=== PATIENT | male | born 1980 | race Caucasian/White ===

== ENCOUNTER 2016-08-22 15:00 | Emergency (ER) | payer BC ==
[2016-08-22] MEDS ORDERED: Acetaminophen 500 MG Tab ONE (15:11)
[2016-08-22] MEDS ORDERED: Acetaminophen 500 MG Tab PO ONE (15:15)
[2016-08-22 15:28] VITALS: BP 131/84
--- NOTE | 2016-08-22 15:45 | EDM.PDOC ---
ED HPI GENERAL MEDICAL PROBLEM - General Chief Complaint: General Stated Complaint: HEADACHE/SHAKES Time Seen by Provider: 08/22/16 15:40 Source of Information: Reports: Patient - History of Present Illness Onset: today, sudden Duration: Hour(s): Quality: Reports: Ache Severity: severe Headache Pain Score (Numeric/FACES): 8 - Related Data Allergies Allergy/AdvReac Type Severity Reaction Status Date / Time Dogs Allergy Sneezing Uncoded 08/22/16 15:48 Outdoor Mold Allergy Sneezing Uncoded 08/22/16 15:48 Ragweed Allergy Sneezing Uncoded 08/22/16 15:48 Edilson Allergy Sneezing Uncoded 08/22/16 15:48 Home Meds: Home Meds Aspirin 81 mg PO BEDTIME 06/04/13 [History] Diltiazem [Tiazac] 240 mg PO DAILY 06/04/13 [History] Sertraline [Zoloft] 75 mg PO DAILY 06/04/13 [History] Sucralfate [Carafate] 1 tab PO QID 02/02/15 [History] EPINEPHrine [Epipen 2-Zachery] 1 injection IM ASDIRECTED PRN 07/12/15 [History] LORazepam [Ativan] 1 mg PO TID PRN 07/12/15 [History] atorvaSTATin Calcium [Atorvastatin Calcium] 20 mg PO DAILY 07/12/15 [History] busPIRone HCl [Buspirone HCl] 7.5 mg PO BID 07/12/15 [History] Cholecalciferol (Vitamin D3) [Vitamin D3] 2,000 units PO DAILY 01/07/16 [History ] Dexlansoprazole [Dexilant] 60 mg PO DAILY 01/07/16 [History] Past Medical History HEENT History: Reports: Allergic rhinitis, Sinusitis Cardiovascular History: Reports: Afib Gastrointestinal History: Reports: Gastritis Neurological History: Reports: Other (see below) (carpal tunnel syndrom bilat.) Psychiatric History: Reports: Anxiety, Panic attack - Past Surgical History GI Surgical History: Reports: None Social & Family History - Tobacco Use Smoking Status *Q: Never Smoker Years of Tobacco use: 20 Packs/Tins Daily: 2 Used Tobacco, but Quit: Yes Month Tobacco Last Used: 11/20 Second Hand Smoke Exposure: No - Alcohol Use Days Per Week of Alcohol Use: 1 Number of Drinks Per Day: 3 Total Drinks Per Week: 3 - Recreational Drug Use Recreational Drug Use: No ED ROS GENERAL - Review of Systems Review Of Systems: See Below Constitutional: Reports: fever, chills HEENT: Reports: No symptoms Respiratory: Reports: No Symptoms Cardiovascular: Reports: No symptoms Endocrine: Reports: no symptoms GI/Abdominal: Reports: Nausea : Reports: no symptoms Musculoskeletal: Reports: no symptoms, muscle pain, muscle stiffness, other Skin: Reports: no symptoms Psychiatric: Reports: No symptoms ED EXAM, GENERAL - Physical Exam Exam: See Below General Appearance: alert, mild distress, obese Ears: normal external exam, normal canal Nose: normal inspection, normal mucosa Throat/Mouth: Normal inspection Head: atraumatic, normocephalic Neck: normal inspection, supple, non-tender, full range of motion Respiratory/Chest: no respiratory distress, lungs clear, normal breath sounds Cardiovascular: normal peripheral pulses, regular rate, rhythm GI/Abdominal: soft, non tender Neurological: alert, oriented Psychiatric: normal affect, normal mood Skin Exam: Warm, Dry Course - Vital Signs Last Recorded V/S: Last Vital Signs Temp 40.2 C H 08/22/16 15:16 Pulse 117 H 08/22/16 15:16 Resp 18 08/22/16 15:16 BP 131/84 08/22/16 15:16 Pulse Ox 98 08/22/16 15:16 - Orders/Labs/Meds Orders: Active Orders 24 hr Category Date Time Status INFLUENZA A+B AG SCREEN [RM] Stat Lab 08/22/16 15:15 Ordered Meds: Medications Discontinued Medications Generic Name Dose Route Start Last Admin Trade Name Ulysses PRN Reason Stop Dose Admin Acetaminophen 1,000 mg 08/22/16 15:15 Tylenol Extra Strength PO 08/22/16 15:16 ONETIME ONE Acetaminophen Confirm 08/22/16 15:11 Tylenol Extra Strength Administered 08/22/16 15:12 Dose 1,000 mg .ROUTE .STK-MED ONE Departure - Departure Time of Disposition: 15:48 Disposition: Home, Self-Care 01 Condition: fair Clinical Impression: Influenza Instructions: Influenza, Adult, [id number] Forms: ED Department Discharge Additional Instructions: Follow up with your regular doctor Thursday. Take meds as ordered. keep fever under control with Tylenol Send home with Tamiflu, z-pack, norco - My Orders Last 24 Hours: My Active Orders 08/22/16 15:15 INFLUENZA A+B AG SCREEN [RM] Stat - Assessment/Plan Last 24 Hours: My Active Orders 08/22/16 15:15 INFLUENZA A+B AG SCREEN [RM] Stat
== END 2016-08-22 16:10 | disposition home or self-care (01) ==
LOC: CC.ED 15:00
DX: J11.1 Influenza due to unidentified influenza virus with other respiratory manifestations (principal); I48.91 Unspecified atrial fibrillation; F41.9 Anxiety disorder, unspecified; Z79.82 Long term (current) use of aspirin; Z79.899 Other long term (current) drug therapy; Z91.09 Other allergy status, other than to drugs and biological substances
CPT/HCPCS: 87804; 99283; A9270

== ENCOUNTER 2018-06-21 22:31 | Emergency (ER) | payer BC, OTHER ==
[2018-06-21 22:54] VITALS: BP 140/63
[2018-06-21] MEDS ORDERED: Ketorolac 60 MG/2 ML SDV IM ONE (23:10)
--- NOTE | 2018-06-21 23:15 | EDM.PDOC ---
ED HPI GENERAL MEDICAL PROBLEM - General Chief Complaint: General Stated Complaint: FEVER Time Seen by Provider: 06/21/18 22:45 Source of Information: Reports: Patient History Limitations: Reports: No Limitations - History of Present Illness INITIAL COMMENTS - FREE TEXT/NARRATIVE: Allen is a 37 year old male who presents to the ED with c/o generalized body aches and fever. He reports starting Thursday evening he began hurting all over. Has had fever as high as 100 deg F the past few days. Reports he has had mild cough. Reports that tonight his headache and body aches got worse prompting Ed visit. He denies any known sick exposure. Reports he just feels lousy. Does have some chest congestion. No chest pain, shortness of breath, abdominal pain. C/o back ache, legs ache, and chest ache. Did take Aleve, which provided some relief. Treatments EPIDEMIOLOGY INTERN: Reports: NSAIDS Generalized Pain Score (Numeric/FACES): 7 - Related Data Allergies Allergy/AdvReac Type Severity Reaction Status Date / Time Dogs Allergy Sneezing Uncoded 06/21/18 22:32 Outdoor Mold Allergy Sneezing Uncoded 06/21/18 22:32 Ragweed Allergy Sneezing Uncoded 06/21/18 22:32 Edilson Allergy Sneezing Uncoded 06/21/18 22:32 Home Meds: Home Meds Aspirin 81 mg PO BEDTIME 06/04/13 [History] Diltiazem [Tiazac] 240 mg PO DAILY 06/04/13 [History] Sertraline [Zoloft] 200 mg PO DAILY 06/04/13 [History] Sucralfate [Carafate] 1 tab PO QID 02/02/15 [History] EPINEPHrine [Epipen 2-Zachery] 1 injection IM ASDIRECTED PRN 07/12/15 [History] LORazepam [Ativan] 1 mg PO TID PRN 07/12/15 [History] atorvaSTATin Calcium [Atorvastatin Calcium] 20 mg PO DAILY 07/12/15 [History] busPIRone HCl [Buspirone HCl] 7.5 mg PO BID 07/12/15 [History] Cholecalciferol (Vitamin D3) [Vitamin D3] 2,000 units PO DAILY 01/07/16 [History ] Dexlansoprazole [Dexilant] 60 mg PO DAILY 08/01/16 [History] predniSONE [Prednisone] 40 mg PO DAILY 5 Days #10 tablet 06/21/18 [Rx] Past Medical History HEENT History: Reports: Allergic Rhinitis, Sinusitis Cardiovascular History: Reports: Afib Gastrointestinal History: Reports: Gastritis Neurological History: Reports: Other (See Below) Psychiatric History: Reports: Anxiety, Panic Attack - Past Surgical History GI Surgical History: Reports: None Oncologic Surgical History: Reports: None Social & Family History - Family History Family Medical History: Noncontributory - Tobacco Use Smoking Status *Q: Never Smoker Second Hand Smoke Exposure: No - Caffeine Use Caffeine Use: Reports: None ED ROS GENERAL - Review of Systems Review Of Systems: ROS reveals no pertinent complaints other than HPI. ED EXAM, GENERAL - Physical Exam Exam: See Below Exam Limited By: No Limitations General Appearance: Alert, WD/WN, No Apparent Distress Eye Exam: Bilateral Eye: EOMI, Normal Fundi, Normal Inspection, PERRL Ears: Normal External Exam, Normal Canal, Hearing Grossly Normal, Normal TMs Nose: Normal Inspection, Normal Mucosa, No Blood Throat/Mouth: Normal Inspection, Normal Lips, Normal Teeth, Normal Gums, Normal Oropharynx, Normal Voice, No Airway Compromise Head: Atraumatic, Normocephalic Neck: Normal Inspection, Supple, Non-Tender, Full Range of Motion Respiratory/Chest: No Respiratory Distress, Lungs Clear, Normal Breath Sounds, No Accessory Muscle Use, Chest Non-Tender Cardiovascular: Normal Peripheral Pulses, Regular Rate, Rhythm, No Edema, No Gallop, No JVD, No Murmur, No Rub GI/Abdominal: Normal Bowel Sounds, Soft, Non-Tender, No Organomegaly, No Distention, No Abnormal Bruit, No Mass Back Exam: Normal Inspection, Full Range of Motion, NT Extremities: Normal Inspection, Normal Range of Motion, Non-Tender, Normal Capillary Refill, No Pedal Edema Neurological: Alert, Oriented, CN II-XII Intact, Normal Cognition, Normal Gait, Normal Reflexes, No Motor/Sensory Deficits Psychiatric: Normal Affect, Normal Mood Skin Exam: Warm, Dry, Intact, Normal Color, No Rash Lymphatic: No Adenopathy Course - Vital Signs Last Recorded V/S: Last Vital Signs Temp 100.7 F H 06/21/18 22:41 Pulse 98 06/21/18 22:41 Resp 18 06/21/18 22:41 BP 140/63 06/21/18 22:41 Pulse Ox 98 06/21/18 22:41 - Orders/Labs/Meds Meds: Medications Discontinued Medications Generic Name Dose Route Start Last Admin Trade Name Ulysses PRN Reason Stop Dose Admin Ketorolac Tromethamine 60 mg 06/21/18 23:10 Toradol IM 06/21/18 23:11 ONETIME ONE - Re-Assessments/Exams Free Text/Narrative Re-Assessment/Exam: 06/21/18 23:09 Discussed lab results with patient. Influenza A positive. Discussed discharge recommendations. Departure - Departure Time of Disposition: 23:11 Disposition: Home, Self-Care 01 Condition: Fair Clinical Impression: Influenza A - Discharge Information *PRESCRIPTION DRUG MONITORING PROGRAM REVIEWED*: Not Applicable *COPY OF PRESCRIPTION DRUG MONITORING REPORT IN PATIENT YOVANI: Not Applicable Prescriptions: predniSONE [Prednisone] 40 mg PO DAILY 5 Days #10 tablet Instructions: Influenza, Adult, [id number] Referrals: Elizabeth Ireland, MAINTENANCE CUSTODIAN [Primary Care Provider] - Forms: ED Department Discharge Additional Instructions: Alternate Tylenol and Aleve/ibuprofen every 3 hours as needed for fever/ discomfort Rest and push fluids. No work for the next couple days. Prednisone 40 mg daily x 5 days. Follow up if symptoms worsen or do not improve
== END 2018-06-21 23:30 | disposition home or self-care (01) ==
LOC: CC.ED 22:31
DX: J10.1 Influenza due to other identified influenza virus with other respiratory manifestations (principal); Z91.09 Other allergy status, other than to drugs and biological substances; Z91.018 Allergy to other foods; Z79.899 Other long term (current) drug therapy
CPT/HCPCS: 87430; 87804; 96372; 99283; J1885

== ENCOUNTER 2018-07-30 09:15 | Emergency (ER) | payer OTHER ==
[2018-07-30 09:54] LABS: CHLORIDE,CL 104 mEq/L (98-106); SODIUM,NA 141 mEq/L (136-145)
--- NOTE | 2018-07-30 10:14 | EDM.PDOC ---
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 Grimes flushing through out his body. States that this isn't his normal anxiety attack. Did have some tingling in feet and hands with it also. Does have history of vertigo and will take meclizine. He doesn't feel like the room spinning dizzy. After being her he felt that he was "warming up" again but still some tingling to hands. No hyperventilation noted. VS have all been stable. NSR on monitor, Denies any chest pain. Did have some nausea that did subside. States that he has not been sleeping well and only had 3-4 hours of sleep last night. 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 Onset: Sudden Associated Symptoms: Denies: Chest Pain - Related Data Allergies Allergy/AdvReac Type Severity Reaction Status Date / Time Dogs Allergy Sneezing Uncoded 07/30/18 09:26 Outdoor Mold Allergy Sneezing Uncoded 07/30/18 09:26 Ragweed Allergy Sneezing Uncoded 07/30/18 09:26 Edilson Allergy Sneezing Uncoded 07/30/18 09:26 Home Meds: Home Meds Aspirin 81 mg PO BEDTIME 06/04/13 [History] Diltiazem [Tiazac] 240 mg PO DAILY 06/04/13 [History] Sertraline [Zoloft] 200 mg PO DAILY 06/04/13 [History] Sucralfate [Carafate] 1 tab PO QID 02/02/15 [History] LORazepam [Ativan] 1 mg PO TID PRN 07/12/15 [History] atorvaSTATin Calcium [Atorvastatin Calcium] 20 mg PO DAILY 07/12/15 [History] Cholecalciferol (Vitamin D3) [Vitamin D3] 5,000 units PO DAILY 01/07/16 [History ] Amitriptyline [Elavil] 25 mg PO DAILY 07/30/18 [History] Fluticasone Propionate [Flonase] 2 spray NS QAM 07/30/18 [History] Meclizine [Antivert] 12.5 mg PO TID 07/30/18 [History] buPROPion [buPROPion XL] 150 mg PO BEDTIME 07/30/18 [History] Past Medical History HEENT History: Reports: Allergic Rhinitis, Sinusitis Cardiovascular History: Reports: Afib Gastrointestinal History: Reports: Gastritis Neurological History: Reports: Other (See Below) Psychiatric History: Reports: Anxiety, Panic Attack - Past Surgical History GI Surgical History: Reports: None Oncologic Surgical History: Reports: None Social & Family History - Family History Family Medical History: Noncontributory - Caffeine Use Caffeine Use: Reports: None - Living Situation & Occupation Living situation: Reports: , with Spouse Occupation: Employed ED ROS GENERAL - Review of Systems Review Of Systems: See Below Constitutional: Reports: Weakness HEENT: Reports: No Symptoms Respiratory: Denies: Shortness of Breath, Cough Cardiovascular: Reports: Lightheadedness. Denies: Chest Pain GI/Abdominal: Reports: Nausea. Denies: Vomiting : Reports: No Symptoms Musculoskeletal: Reports: Other (see HPI) Skin: Reports: No Symptoms Neurological: Reports: Dizziness, Headache, Numbness, Paresthesia, Tingling Psychiatric: Reports: Anxiety ED EXAM, NEURO - Physical Exam Exam: See Below Exam Limited By: No Limitations General Appearance: Alert, WD/WN, No Apparent Distress Eye Exam: Bilateral Eye: PERRL (3 mm equal) Ears: Normal External Exam, Normal Canal, Normal TMs Nose: Normal Inspection Throat/Mouth: Normal Inspection, Normal Oropharynx, Normal Voice, No Airway Compromise Head Exam: Atraumatic, Normocephalic Neck: Normal Inspection, Supple, Non-Tender, Full Range of Motion Respiratory/Chest: No Respiratory Distress, Lungs Clear, Normal Breath Sounds, Chest Non-Tender Cardiovascular: Regular Rate, Rhythm, No Edema GI/Abdominal: Normal Bowel Sounds, Soft, Non-Tender Neurological: Alert, CN II-XII Intact, Normal Gait, Normal Reflexes, No Motor/ Sensory Deficits, Oriented x 3 Back Exam: Normal Inspection, Full Range of Motion Extremities: Normal Inspection, Normal Range of Motion, Non-Tender, No Pedal Edema, Normal Capillary Refill Psychiatric: Normal Affect, Normal Mood Skin Exam: Warm, Dry, Intact, Normal Color, No Rash Course - Vital Signs Last Recorded V/S: Last Vital Signs Temp 98.8 F 07/30/18 10:14 Pulse 72 07/30/18 10:14 Resp 20 07/30/18 10:14 BP 138/67 07/30/18 10:14 Pulse Ox 98 07/30/18 10:14 - Orders/Labs/Meds Labs: Laboratory Tests 07/30/18 07/30/18 07/30/18 Range/Units 09:23 09:24 09:35 WBC 8.3 (5.0-10.0) 10^3/uL RBC 4.95 (4.50-6.00) 10^6/uL Hgb 14.0 (14.0-18.0) g/dL Hct 42.1 (40.0-54.0) % MCV 85.1 (82.0-94.0) fL MCH 28.3 (27.0-32.0) pg MCHC 33.3 (33.0-38.0) g/dL RDW Coeff of Martha 14.2 (11.0-15.0) % Plt Count 239 (150-400) 10^3/uL Neut % (Auto) 67.3 (35-85) % Lymph % (Auto) 22.4 (10-55) % Mcduffie % (Auto) 7.9 (0-16) % Eos % (Auto) 1.8 (0-5) % Baso % (Auto) 0.6 (0-3) % Neut # (Auto) 5.56 (1.80-7.00) 10^3/uL Lymph # (Auto) 1.85 (1.00-4.80) 10^3/uL Mcduffie # (Auto) 0.65 (0.00-0.80) 10^3/uL Eos # (Auto) 0.15 (0.00-0.45) 10^3/uL Baso # (Auto) 0.05 10^3/uL PT 9.8 (9.7-12.3) SEC INR 0.94 (0.92-1.18) APTT 33.4 H (23.2-32.3) SEC Sodium 141 (136-145) mEq/L Potassium 4.2 (3.5-5.0) mEq/L Chloride 104 (98-106) mEq/L Carbon Dioxide 29 (21-32) mmol/L BUN 24 H (7-18) mg/dL Creatinine 0.9 (0.7-1.3) mg/dL Est Cr Clr Drug Dosing 122.15 mL/min Estimated GFR (MDRD) > 60 (>=60) mL/min Glucose 112 H (75-99) mg/dL Calcium 8.9 (8.4-10.1) mg/dL Lactate Dehydrogenase 208 H (100-190) U/L Creatine Kinase 304 H (35-232) U/L Troponin I < 0.017 (0.00-0.06) ng/mL Urine Color (YELLOW) Urine Appearance (CLEAR) Urine pH (4.5-8.0) Ur Specific [place] (1.003-1.020) Urine Protein (NEGATIVE) mg/dL Urine Glucose (UA) (NEGATIVE) mg/dL Urine Ketones (NEGATIVE) mg/dL Urine Occult Blood (NEGATIVE) Urine Nitrite (NEGATIVE) Urine Bilirubin (NEGATIVE) Urine Urobilinogen (0.2-1.0) EU/dL Ur Leukocyte Esterase (NEGATIVE) Urine RBC (0-5) /HPF Urine WBC (0-5) /HPF Ur Squamous Epith Cells (NOT SEEN) /HPF Urine Bacteria (NOT SEEN) /HPF Urine Mucus (NOT SEEN) /HPF 07/30/18 Range/Units 10:10 WBC (5.0-10.0) 10^3/uL RBC (4.50-6.00) 10^6/uL Hgb (14.0-18.0) g/dL Hct (40.0-54.0) % MCV (82.0-94.0) fL MCH (27.0-32.0) pg MCHC (33.0-38.0) g/dL RDW Coeff of Martha (11.0-15.0) % Plt Count (150-400) 10^3/uL Neut % (Auto) (35-85) % Lymph % (Auto) (10-55) % Mcduffie % (Auto) (0-16) % Eos % (Auto) (0-5) % Baso % (Auto) (0-3) % Neut # (Auto) (1.80-7.00) 10^3/uL Lymph # (Auto) (1.00-4.80) 10^3/uL Mcduffie # (Auto) (0.00-0.80) 10^3/uL Eos # (Auto) (0.00-0.45) 10^3/uL Baso # (Auto) 10^3/uL PT (9.7-12.3) SEC INR (0.92-1.18) APTT (23.2-32.3) SEC Sodium (136-145) mEq/L Potassium (3.5-5.0) mEq/L Chloride (98-106) mEq/L Carbon Dioxide (21-32) mmol/L BUN (7-18) mg/dL Creatinine (0.7-1.3) mg/dL Est Cr Clr Drug Dosing mL/min Estimated GFR (MDRD) (>=60) mL/min Glucose (75-99) mg/dL Calcium (8.4-10.1) mg/dL Lactate Dehydrogenase (100-190) U/L Creatine Kinase (35-232) U/L Troponin I (0.00-0.06) ng/mL Urine Color Yellow (YELLOW) Urine Appearance Clear (CLEAR) Urine pH 6.5 (4.5-8.0) Ur Specific [place] 1.020 (1.003-1.020) Urine Protein Negative (NEGATIVE) mg/dL Urine Glucose (UA) Negative (NEGATIVE) mg/dL Urine Ketones Negative (NEGATIVE) mg/dL Urine Occult Blood Negative (NEGATIVE) Urine Nitrite Negative (NEGATIVE) Urine Bilirubin Negative (NEGATIVE) Urine Urobilinogen 1.0 (0.2-1.0) EU/dL Ur Leukocyte Esterase Negative (NEGATIVE) Urine RBC 0-5 (0-5) /HPF Urine WBC 0-5 (0-5) /HPF Ur Squamous Epith Cells Occasional H (NOT SEEN) /HPF Urine Bacteria Occasional H (NOT SEEN) /HPF Urine Mucus Few H (NOT SEEN) /HPF - Re-Assessments/Exams Free Text/Narrative Re-Assessment/Exam: 07/30/18 10:15 In to discuss lab results as normal. discussed that symptoms can be related to the wellbutrin that he was started on Thursday Discussed with MCKENZIE Dean who prescribed it and she agrees that it may be side effects but would like him to stay on it for his anxiety. Departure - Departure Time of Disposition: 10:33 Disposition: Home, Self-Care 01 Condition: Good Clinical Impression: Medication side effects - Discharge Information *PRESCRIPTION DRUG MONITORING PROGRAM REVIEWED*: Not Applicable *COPY OF PRESCRIPTION DRUG MONITORING REPORT IN PATIENT YOVANI: Not Applicable Referrals: Prem Jay PA-C [Primary Care Provider] - Forms: ED Department Discharge Additional Instructions: Continue on meds as ordered by Maryse Follow up with Maryse as scheduled recheck if any new concerns noted. - Problem List & Annotations (1) Medication side effects SNOMED Code(s): 677770164 Code(s): T88.7XXA - UNSP ADVERSE EFFECT OF DRUG OR MEDICAMENT, INIT ENCNTR Status: Acute Priority: High (2) Anxiety SNOMED Code(s): 94836282 Code(s): F41.9 - ANXIETY DISORDER, UNSPECIFIED Status: Chronic Priority: Medium - Problem List Review Problem List Initiated/Reviewed/Updated: Yes
[2018-07-30 10:15] VITALS: BP 138/67
== END 2018-07-30 10:45 | disposition home or self-care (01) ==
LOC: CC.ED 09:15
DX: R20.2 Paresthesia of skin (principal); T45.0X5A Adverse effect of antiallergic and antiemetic drugs, initial encounter; F41.9 Anxiety disorder, unspecified; I48.91 Unspecified atrial fibrillation; Z79.82 Long term (current) use of aspirin; Z79.899 Other long term (current) drug therapy
CPT/HCPCS: 36415; 80048; 81001; 82550; 83615; 84484; 85025; 85610; 85730; 93005; 99284

== ENCOUNTER 2019-06-29 17:11 | Emergency (ER) | payer OTHER ==
[2019-06-29 17:48] LABS: CHLORIDE,CL 101 mEq/L (98-106); SODIUM,NA 140 mEq/L (136-145)
--- NOTE | 2019-06-29 18:04 | EDM.PDOC ---
ED HPI GENERAL MEDICAL PROBLEM - General Chief Complaint: Chest Pain Stated Complaint: SOB/PAIN LT ARM AND LT LEG Time Seen by Provider: 06/29/19 17:20 Source of Information: Reports: Patient History Limitations: Reports: No Limitations - History of Present Illness INITIAL COMMENTS - FREE TEXT/NARRATIVE: Patient presents to the ER with complaints of a fluttering in his heart, not feeling well and mild left arm pain. Was out at work, not lifting or straining at the time. States at 1430 this afternoon, started noting the fluttering in his chest. Went home as relates when has happened in the past, often related to panic attack or anxiety. Typically, will feel better after an hour or so but the symptoms persisted. Denies any chest pain, states discomfort in left arm around a 4/10. Mild nausea. Mild shortness of breath. Has a history of paroxysmal atrial fib, admits that doesn't always know when in it. Currently not on anticoagulation, takes meds to control rate (Cardizem). Used to be on Ativan in the past for anxiety but no longer uses it, Maryse Long discontinued it. Onset: Today, Sudden Duration: Hour(s):, Constant Location: Reports: Chest, Upper Extremity, Left Quality: Reports: Ache Severity: Mild Improves with: Reports: None Associated Symptoms: Reports: Malaise, Nausea/Vomiting, Shortness of Breath. Denies: Confusion, Chest Pain, Cough, Fever/Chills, Headaches, Loss of Appetite , Weakness Left Leg Pain Score (Numeric/FACES): 4 - Related Data Allergies Allergy/AdvReac Type Severity Reaction Status Date / Time Dogs Allergy Sneezing Uncoded 07/30/18 09:26 Outdoor Mold Allergy Sneezing Uncoded 07/30/18 09:26 Ragweed Allergy Sneezing Uncoded 07/30/18 09:26 Edilson Allergy Sneezing Uncoded 07/30/18 09:26 Home Meds: Home Meds Aspirin 81 mg PO BEDTIME 06/04/13 [History] Diltiazem [Tiazac] 240 mg PO DAILY 06/04/13 [History] Sucralfate [Carafate] 1 tab PO QID 02/02/15 [History] atorvaSTATin Calcium [Atorvastatin Calcium] 20 mg PO DAILY 07/12/15 [History] Cholecalciferol (Vitamin D3) [Vitamin D3] 5,000 units PO DAILY 01/07/16 [History ] Amitriptyline [Elavil] 25 mg PO DAILY 07/30/18 [History] Fluticasone Propionate [Flonase] 2 spray NS QAM 07/30/18 [History] Meclizine [Antivert] 12.5 mg PO TID 07/30/18 [History] buPROPion [buPROPion XL] 150 mg PO BEDTIME 07/30/18 [History] Past Medical History HEENT History: Reports: Allergic Rhinitis, Sinusitis Cardiovascular History: Reports: Afib Gastrointestinal History: Reports: Gastritis Musculoskeletal History: Reports: Other (See Below) Other Musculoskeletal History: chronic L shoulder pain Neurological History: Reports: Other (See Below) Psychiatric History: Reports: Anxiety, Panic Attack - Past Surgical History GI Surgical History: Reports: None Oncologic Surgical History: Reports: None Social & Family History - Family History Family Medical History: Noncontributory - Caffeine Use Caffeine Use: Reports: None - Living Situation & Occupation Living situation: Reports: , with Spouse Occupation: Employed ED ROS GENERAL - Review of Systems Review Of Systems: See Below Constitutional: Reports: Malaise, Weakness, Fatigue. Denies: Fever, Chills, Decreased Appetite HEENT: Denies: Ear Pain, Nose Pain, Sinus Problem, Throat Pain Respiratory: Reports: Shortness of Breath. Denies: Cough Cardiovascular: Denies: Chest Pain, Edema, Lightheadedness Endocrine: Reports: Fatigue GI/Abdominal: Reports: Nausea. Denies: Abdominal Pain, Constipation, Diarrhea, Vomiting : Reports: No Symptoms Musculoskeletal: Reports: Arm Pain Skin: Reports: No Symptoms Neurological: Reports: Weakness ED EXAM, GENERAL - Physical Exam Exam: See Below Exam Limited By: No Limitations General Appearance: Alert, WD/WN, No Apparent Distress Ears: Normal External Exam, Normal TMs Nose: Normal Inspection, Normal Mucosa, No Blood Throat/Mouth: Normal Inspection, Normal Oropharynx Head: Normocephalic Respiratory/Chest: No Respiratory Distress, Lungs Clear, Normal Breath Sounds Cardiovascular: Regular Rate, Rhythm GI/Abdominal: Normal Bowel Sounds, Soft, Non-Tender Extremities: Normal Inspection, No Pedal Edema Neurological: Alert, Oriented Skin Exam: Warm, Dry Course - Vital Signs Last Recorded V/S: Last Vital Signs Temp 98.9 F 06/29/19 17:45 Pulse 99 06/29/19 17:45 Resp 17 06/29/19 17:45 BP 151/93 H 06/29/19 17:45 Pulse Ox 97 06/29/19 17:45 - Orders/Labs/Meds Orders: Active Orders 24 hr Category Date Time Status Cardiac Monitoring [RC] . DIRECTED Care 06/29/19 17:28 Active EKG Documentation Completion [RC] STAT Care 06/29/19 17:28 Active Chest 2V [CR] Stat Exams 06/29/19 17:29 Taken Labs: Laboratory Tests 06/29/19 06/29/19 06/29/19 Range/Units 17:28 17:28 21:00 WBC 12.2 H (5.0-10.0) 10^3/uL RBC 5.47 (4.50-6.00) 10^6/uL Hgb 15.4 (14.0-18.0) g/dL Hct 45.8 (40.0-54.0) % MCV 83.7 (82.0-94.0) fL MCH 28.2 (27.0-32.0) pg MCHC 33.6 (33.0-38.0) g/dL RDW Coeff of Martha 14.3 (11.0-15.0) % Plt Count 276 (150-400) 10^3/uL Add Manual Diff Yes Neutrophils % (Manual) 68 (35-85) % Band Neutrophils % 5 (0-5) % Lymphocytes % (Manual) 21 (21-55) % Monocytes % (Manual) 4 (2-12) % Eosinophils % (Manual) 1 (0-5) % Basophils % (Manual) 1 (0-3) % Sodium 140 (136-145) mEq/L Potassium 4.0 (3.5-5.0) mEq/L Chloride 101 (98-106) mEq/L Carbon Dioxide 26 (21-32) mmol/L BUN 24 H (7-18) mg/dL Creatinine 1.2 (0.7-1.3) mg/dL Est Cr Clr Drug Dosing 90.71 mL/min Estimated GFR (MDRD) > 60 (>=60) mL/min Glucose 104 H (75-99) mg/dL Calcium 9.4 (8.4-10.1) mg/dL Lactate Dehydrogenase 272 H (100-190) U/L Creatine Kinase 281 H (35-232) U/L Troponin I < 0.017 < 0.017 (0.00-0.06) ng/mL C-Reactive Protein 1.6 H (0.2-0.8) mg/dL - Re-Assessments/Exams Free Text/Narrative Re-Assessment/Exam: 06/29/19 18:12 WBC and CRP mildly elevated. Still does not feel well, mild arm numbness. Will monitor over the next 3 hours or so and repeat his troponin at 2100. Patient agrees with plan. 06/29/19 21:32 Labs remain normal. Is feeling better, has mild arm and leg discomfort. No fevers developed. Will discharge home, discuss anxiety with Maryse Kalyan as she had stopped his ATivan and he does not feel the hydroxyzine is working all that well. Advised to return if any worsening symptoms or changes. Departure - Departure Time of Disposition: 21:33 Disposition: Home, Self-Care 01 Condition: Good Clinical Impression: Atypical chest pain Referrals: Prem Jay, MAHSA [Primary Care Provider] - Forms: ED Department Discharge Additional Instructions: 1. Rest 2. Push fluids 3. Tylenol or ibuprofen for fever or discomfort 4. Will discuss anxiety with Maryse Biggs and notify you of changes 5. Follow up if any persisting concerns or changes. Sepsis Event Note - Evaluation Sepsis Screening Result: No Definite Risk - Focused Exam Vital Signs: Vital Signs Temp Pulse Resp BP Pulse Ox 06/29/19 17:45 98.9 F 99 17 151/93 H 97 06/29/19 17:30 98.5 F 104 H 14 164/87 H 95 06/29/19 17:15 98.6 F 98 18 175/115 H 98 Date Exam was Performed: 06/29/19 Time Exam was Performed: 21:32 - My Orders Last 24 Hours: My Active Orders 06/29/19 17:28 Cardiac Monitoring [RC] . DIRECTED EKG Documentation Completion [RC] STAT 06/29/19 17:29 Chest 2V [CR] Stat - Assessment/Plan Last 24 Hours: My Active Orders 06/29/19 17:28 Cardiac Monitoring [RC] . DIRECTED EKG Documentation Completion [RC] STAT 06/29/19 17:29 Chest 2V [CR] Stat
[2019-06-29 19:06] VITALS: BP 151/93; PULSE 99
== END 2019-06-29 21:42 | disposition home or self-care (01) ==
LOC: SUPCPDRO 17:11 → CC.ED 17:11
DX: R07.89 Other chest pain (principal); D72.829 Elevated white blood cell count, unspecified; R79.82 Elevated C-reactive protein (CRP); Z79.82 Long term (current) use of aspirin; Z91.048 Other nonmedicinal substance allergy status
CPT/HCPCS: 36415; 71046; 80048; 82550; 83615; 84484; 85025; 86140; 93005; 99285-25

== ENCOUNTER 2019-07-01 06:08 | Emergency (ER) | payer OTHER ==
[2019-07-01 06:16] VITALS: BP 147/78; PULSE 94
--- NOTE | 2019-07-01 07:08 | EDM.PDOC ---
ED HPI GENERAL MEDICAL PROBLEM - General Chief Complaint: General Stated Complaint: SHAKY/GENERAL Time Seen by Provider: 07/01/19 06:55 Source of Information: Reports: Patient History Limitations: Reports: No Limitations - History of Present Illness INITIAL COMMENTS - FREE TEXT/NARRATIVE: Woke up at 0500 and had a diarrhea stool and then felt cool and clammy so came into the ER. Has not had an further diarrhea since then. Currently feels better. Location: Reports: Abdomen Left Lower Abdomen Pain Score (Numeric/FACES): 3 - Related Data Allergies Allergy/AdvReac Type Severity Reaction Status Date / Time Dogs Allergy Sneezing Uncoded 07/01/19 06:16 Outdoor Mold Allergy Sneezing Uncoded 07/01/19 06:16 Ragweed Allergy Sneezing Uncoded 07/01/19 06:16 Edilson Allergy Sneezing Uncoded 07/01/19 06:16 Home Meds: Home Meds Aspirin 81 mg PO BEDTIME 06/04/13 [History] Diltiazem [Tiazac] 240 mg PO DAILY 06/04/13 [History] Sucralfate [Carafate] 1 tab PO QID 02/02/15 [History] atorvaSTATin Calcium [Atorvastatin Calcium] 20 mg PO DAILY 07/12/15 [History] Cholecalciferol (Vitamin D3) [Vitamin D3] 5,000 units PO DAILY 01/07/16 [History ] Amitriptyline [Elavil] 25 mg PO DAILY 07/30/18 [History] Fluticasone Propionate [Flonase] 2 spray NS QAM 07/30/18 [History] Meclizine [Antivert] 12.5 mg PO TID 07/30/18 [History] buPROPion [buPROPion XL] 150 mg PO BEDTIME 07/30/18 [History] Past Medical History HEENT History: Reports: Allergic Rhinitis, Sinusitis Cardiovascular History: Reports: Afib Gastrointestinal History: Reports: Gastritis Musculoskeletal History: Reports: Other (See Below) Other Musculoskeletal History: chronic L shoulder pain Neurological History: Reports: Other (See Below) Psychiatric History: Reports: Anxiety, Panic Attack - Infectious Disease History Infectious Disease History: Reports: MRSA - Past Surgical History GI Surgical History: Reports: None Oncologic Surgical History: Reports: None Social & Family History - Family History Family Medical History: Noncontributory - Tobacco Use Smoking Status *Q: Former Smoker Used Tobacco, but Quit: Yes Month/Year Tobacco Last Used: 2017 - Caffeine Use Caffeine Use: Reports: Coffee, Soda - Recreational Drug Use Recreational Drug Use: No - Living Situation & Occupation Living situation: Reports: , with Spouse Occupation: Employed ED ROS GENERAL - Review of Systems Review Of Systems: See Below Constitutional: Denies: Fever, Chills Respiratory: Reports: No Symptoms Cardiovascular: Reports: No Symptoms GI/Abdominal: Reports: Diarrhea Musculoskeletal: Reports: No Symptoms Skin: Reports: No Symptoms ED EXAM, GENERAL - Physical Exam Exam: See Below Exam Limited By: No Limitations General Appearance: Alert, WD/WN, No Apparent Distress Head: Atraumatic, Normocephalic Neck: Normal Inspection, Supple, Non-Tender Respiratory/Chest: No Respiratory Distress, Lungs Clear, Normal Breath Sounds Cardiovascular: Regular Rate, Rhythm GI/Abdominal: Normal Bowel Sounds, Soft, Non-Tender Extremities: Normal Capillary Refill Skin Exam: Warm, Dry, Intact Course - Vital Signs Last Recorded V/S: Last Vital Signs Temp 99.1 F 07/01/19 06:14 Pulse 94 07/01/19 06:14 Resp 18 07/01/19 06:14 BP 147/78 H 07/01/19 06:14 Pulse Ox 99 07/01/19 06:14 - Orders/Labs/Meds Labs: Laboratory Tests 07/01/19 07/01/19 Range/Units 06:21 06:44 WBC 8.6 (5.0-10.0) 10^3/uL RBC 5.09 (4.50-6.00) 10^6/uL Hgb 14.2 (14.0-18.0) g/dL Hct 43.4 (40.0-54.0) % MCV 85.3 (82.0-94.0) fL MCH 27.9 (27.0-32.0) pg MCHC 32.7 L (33.0-38.0) g/dL RDW Coeff of Martha 14.2 (11.0-15.0) % Plt Count 247 (150-400) 10^3/uL Neut % (Auto) 59.0 (35-85) % Lymph % (Auto) 29.1 (10-55) % [place] % (Auto) 8.3 (0-16) % Eos % (Auto) 2.9 (0-5) % Baso % (Auto) 0.7 (0-3) % Neut # (Auto) 5.04 (1.80-7.00) 10^3/uL Lymph # (Auto) 2.49 (1.00-4.80) 10^3/uL [place] # (Auto) 0.71 (0.00-0.80) 10^3/uL Eos # (Auto) 0.25 (0.00-0.45) 10^3/uL Baso # (Auto) 0.06 10^3/uL Urine Color Yellow (YELLOW) Urine Appearance Clear (CLEAR) Urine pH 6.0 (4.5-8.0) Ur Specific [place] 1.020 (1.003-1.020) Urine Protein Negative (NEGATIVE) mg/dL Urine Glucose (UA) Negative (NEGATIVE) mg/dL Urine Ketones Negative (NEGATIVE) mg/dL Urine Occult Blood Negative (NEGATIVE) Urine Nitrite Negative (NEGATIVE) Urine Bilirubin Negative (NEGATIVE) Urine Urobilinogen 0.2 (0.2-1.0) EU/dL Ur Leukocyte Esterase Negative (NEGATIVE) Urine RBC Not seen (0-5) /HPF Urine WBC Not seen (0-5) /HPF Departure - Departure Time of Disposition: 07:14 Disposition: Home, Self-Care 01 Clinical Impression: Gastroenteritis, Obesity - Discharge Information *PRESCRIPTION DRUG MONITORING PROGRAM REVIEWED*: Not Applicable *COPY OF PRESCRIPTION DRUG MONITORING REPORT IN PATIENT YOVANI: Not Applicable Instructions: Viral Gastroenteritis, Adult Forms: ED Department Discharge Additional Instructions: push fluids tylenol as needed for discomfort recheck in the clinic for new concerns. Sepsis Event Note - Evaluation Sepsis Screening Result: No Definite Risk - Focused Exam Vital Signs: Vital Signs Temp Pulse Resp BP Pulse Ox 07/01/19 06:14 99.1 F 94 18 147/78 H 99 Date Exam was Performed: 07/01/19 Time Exam was Performed: 07:13 - Problem List & Annotations (1) Obesity SNOMED Code(s): 609815442 Code(s): E66.9 - OBESITY, UNSPECIFIED Status: Chronic Priority: High (2) Gastroenteritis SNOMED Code(s): 70243018 Code(s): K52.9 - NONINFECTIVE GASTROENTERITIS AND COLITIS, UNSPECIFIED Status: Acute - Problem List Review Problem List Initiated/Reviewed/Updated: Yes
== END 2019-07-01 07:18 | disposition home or self-care (01) ==
LOC: CC.ED 06:08
DX: K52.9 Noninfective gastroenteritis and colitis, unspecified (principal); E66.9 Obesity, unspecified; Z68.42 Body mass index [BMI] 45.0-49.9, adult; F41.9 Anxiety disorder, unspecified; Z79.82 Long term (current) use of aspirin; Z79.899 Other long term (current) drug therapy; Z87.891 Personal history of nicotine dependence; Z88.8 Allergy status to other drugs, medicaments and biological substances; Z91.048 Other nonmedicinal substance allergy status; Z91.09 Other allergy status, other than to drugs and biological substances
CPT/HCPCS: 36415; 81001; 85025; 99284

== ENCOUNTER 2020-03-11 08:57 | Emergency (ER) | payer BC ==
--- NOTE | 2020-03-11 10:10 | EDM.PDOC ---
ED HPI GENERAL MEDICAL PROBLEM - General Chief Complaint: General Stated Complaint: fever, body aches Time Seen by Provider: 03/11/20 10:00 Source of Information: Reports: Patient History Limitations: Reports: No Limitations - History of Present Illness INITIAL COMMENTS - FREE TEXT/NARRATIVE: woke at 0630 this AM with headache and some chills. continues to have chills but the chills are some better. He states that the headache is across his forehead and into his temples. He states that his hands feel so cold. COVID test today is negative. Onset: Today Onset Date: 03/11/20 Onset Time: 06:30 Location: Reports: Head Associated Symptoms: Reports: No Other Symptoms Headache Pain Score (Numeric/FACES): 7 - Related Data Allergies Allergy/AdvReac Type Severity Reaction Status Date / Time Dogs Allergy Sneezing Uncoded 03/11/20 09:27 Outdoor Mold Allergy Sneezing Uncoded 03/11/20 09:27 Ragweed Allergy Sneezing Uncoded 03/11/20 09:27 Edilson Allergy Sneezing Uncoded 03/11/20 09:27 Home Meds: Home Meds Aspirin 81 mg PO BEDTIME 06/04/13 [History] Diltiazem [Tiazac] 240 mg PO DAILY 06/04/13 [History] Sucralfate [Carafate] 1 tab PO QID 02/02/15 [History] atorvaSTATin Calcium [Atorvastatin Calcium] 20 mg PO DAILY 07/12/15 [History] Cholecalciferol (Vitamin D3) [Vitamin D3] 5,000 units PO DAILY 01/07/16 [History] Fluticasone Propionate [Flonase] 2 spray NS QAM 07/30/18 [History] Meclizine [Antivert] 12.5 mg PO TID 07/30/18 [History] ALPRAZolam [Xanax] 0.25 mg PO BID 03/11/20 [History] Celecoxib [CeleBREX] 200 mg PO BID 03/11/20 [History] Cyclobenzaprine [Flexeril] 5 mg PO DAILY 03/11/20 [History] Vortioxetine Hydrobromide [Brintellix] 10 mg PO BID 03/11/20 [History] Past Medical History HEENT History: Reports: Allergic Rhinitis, Sinusitis Cardiovascular History: Reports: Afib Gastrointestinal History: Reports: Gastritis Musculoskeletal History: Reports: Fibromyalgia, Osteoarthritis, Other (See Below) Other Musculoskeletal History: chronic L shoulder pain Neurological History: Reports: Other (See Below) Psychiatric History: Reports: Anxiety, Panic Attack - Infectious Disease History Infectious Disease History: Reports: MRSA - Past Surgical History GI Surgical History: Reports: None Oncologic Surgical History: Reports: None Social & Family History - Family History Family Medical History: Noncontributory - Tobacco Use Smoking Status *Q: Former Smoker Used Tobacco, but Quit: Yes Month/Year Tobacco Last Used: 2013 - Caffeine Use Caffeine Use: Reports: Coffee, Soda - Living Situation & Occupation Living situation: Reports: , with Spouse Occupation: Employed ED ROS GENERAL - Review of Systems Review Of Systems: See Below Constitutional: Denies: Fever HEENT: Reports: No Symptoms Respiratory: Reports: No Symptoms Cardiovascular: Reports: No Symptoms GI/Abdominal: Reports: No Symptoms Neurological: Reports: Headache. Denies: Numbness, Tingling ED EXAM, GENERAL - Physical Exam Exam: See Below Exam Limited By: No Limitations General Appearance: Alert, WD/WN, Mild Distress Ears: Normal External Exam, Normal TMs Head: Atraumatic, Normocephalic Neck: Normal Inspection, Supple, Non-Tender, Full Range of Motion Respiratory/Chest: No Respiratory Distress, Lungs Clear, Normal Breath Sounds Cardiovascular: Regular Rate, Rhythm, No Edema GI/Abdominal: Normal Bowel Sounds, Soft Extremities: Normal Inspection, No Pedal Edema Neurological: Alert, Oriented Skin Exam: Warm, Dry, Intact Course - Vital Signs Last Recorded V/S: Last Vital Signs Temp 99 F 03/11/20 09:32 Pulse 88 03/11/20 11:11 Resp 20 03/11/20 09:32 BP 150/88 H 03/11/20 12:12 Pulse Ox 98 03/11/20 09:32 - Orders/Labs/Meds Labs: Laboratory Tests 03/11/20 Range/Units 09:05 SARS CoV-2 RNA Rapid ANN Negative (NEGATIVE) Meds: Medications Discontinued Medications Generic Name Dose Route Start Last Admin Trade Name Freq PRN Reason Stop Dose Admin Clonidine HCl 0.1 mg 03/11/20 11:11 03/11/20 11:16 Catapres PO 03/11/20 11:12 0.1 mg NOW STA Administration Ketorolac Tromethamine 60 mg 03/11/20 10:06 10/04/20 10:25 Toradol IM 03/11/20 10:07 60 mg ONETIME ONE Administration - Re-Assessments/Exams Free Text/Narrative Re-Assessment/Exam: 03/11/20 12:30 States that the headache is almost gone. He feels better. The chills are gone. He has no dizziness at this time. Departure - Departure Time of Disposition: 12:31 Disposition: Home, Self-Care 01 Condition: Good Clinical Impression: Head ache Qualifiers: Headache type: tension-type Headache chronicity pattern: acute headache Intractability: intractable Qualified Code(s): G44.201 - Tension-type headache, unspecified, intractable Hypertension Qualifiers: Hypertension type: essential hypertension Qualified Code(s): I10 - Essential (primary) hypertension - Discharge Information *PRESCRIPTION DRUG MONITORING PROGRAM REVIEWED*: Not Applicable *COPY OF PRESCRIPTION DRUG MONITORING REPORT IN PATIENT YOVANI: Not Applicable Referrals: Prem Jay PA-C [Primary Care Provider] - Forms: ED Department Discharge Additional Instructions: continue to take meds as ordered push fluids get plenty of rest If headache continue make appt in the clinic tylenol as needed for headache. Sepsis Event Note (ED) - Evaluation Sepsis Screening Result: No Definite Risk - Focused Exam Vital Signs: Vital Signs Temp Pulse Resp BP BP Pulse Ox 03/11/20 12:12 150/88 H 03/11/20 11:16 154/104 H 03/11/20 11:11 88 154/104 H 03/11/20 09:32 99 F 87 20 149/98 H 98 - Problem List & Annotations (1) Head ache SNOMED Code(s): 05923184 Code(s): R51.9 - HEADACHE, UNSPECIFIED Status: Acute Priority: High Current Visit: Yes Qualifiers: Headache type: tension-type Headache chronicity pattern: acute headache Intractability: intractable Qualified Code(s): G44.201 - Tension-type headache, unspecified, intractable (2) Hypertension SNOMED Code(s): 19877794 Code(s): I10 - ESSENTIAL (PRIMARY) HYPERTENSION Status: Acute Priority: Medium Current Visit: Yes Qualifiers: Hypertension type: essential hypertension Qualified Code(s): I10 - Essential (primary) hypertension - Problem List Review Problem List Initiated/Reviewed/Updated: Yes
[2020-03-11] MEDS: Ketorolac 60 MG/2 ML SDV IM ONE (10:25)
[2020-03-11 11:13] VITALS: PULSE 88
[2020-03-11] MEDS: cloNIDine 0.1 MG Tab PO STA (11:16)
[2020-03-11 12:12] VITALS: BP 150/88
== END 2020-03-11 12:45 | disposition home or self-care (01) ==
LOC: CC.ED 08:57
DX: G44.201 Tension-type headache, unspecified, intractable (principal); I10 Essential (primary) hypertension; I48.91 Unspecified atrial fibrillation; F41.9 Anxiety disorder, unspecified; M19.90 Unspecified osteoarthritis, unspecified site; Z87.891 Personal history of nicotine dependence; Z20.828 Contact with and (suspected) exposure to other viral communicable diseases; Z91.048 Other nonmedicinal substance allergy status; Z91.018 Allergy to other foods; Z79.82 Long term (current) use of aspirin; Z79.899 Other long term (current) drug therapy
CPT/HCPCS: 96372; 99284; A9270-GY; J1885; U0002

== ENCOUNTER 2020-04-06 17:43 | Emergency (ER) | payer BC ==
[2020-04-06 17:53] VITALS: BP 163/93; PULSE 92
--- NOTE | 2020-04-06 18:01 | EDM.PDOC ---
ED HPI GENERAL MEDICAL PROBLEM - General Chief Complaint: General Stated Complaint: L Sided Facial Tingling Time Seen by Provider: 04/06/20 17:44 Source of Information: Reports: Patient History Limitations: Reports: No Limitations - History of Present Illness INITIAL COMMENTS - FREE TEXT/NARRATIVE: This patient is a 39 year old male that presents to the ER. Patient reports that at about 4:30pm he was watching tv when his left face went numb. He reports he improved after a few minutes, then went numb again. Patient reports some mild dizziness today. He denies headache, loss of vision, vision changes, unilateral weaknesses, general weaknesses, congestion,drainage, cough, sore throat, earache, chest pain, shortness of breath, nausea, vomiting, diarrhea, abd pain, back pain. He reports that his hearing does feel a little muffled in both ears. Patient denies stroke history. History of A-fib per patient. Onset: Today Onset Date: 04/06/20 Onset Time: 16:30 Location: Reports: Face Severity: Mild Improves with: Reports: None Worsens with: Reports: None Associated Symptoms: Denies: Confusion, Chest Pain, Cough, cough w sputum, Diaphoresis, Fever/Chills, Headaches, Loss of Appetite, Malaise, Nausea/Vomiting, Rash, Seizure, Shortness of Breath, Syncope, Weakness - Related Data Allergies Allergy/AdvReac Type Severity Reaction Status Date / Time Dogs Allergy Sneezing Uncoded 03/11/20 09:27 Outdoor Mold Allergy Sneezing Uncoded 03/11/20 09:27 Ragweed Allergy Sneezing Uncoded 03/11/20 09:27 Edilson Allergy Sneezing Uncoded 03/11/20 09:27 Home Meds: Home Meds Aspirin 81 mg PO BEDTIME 06/04/13 [History] Diltiazem [Tiazac] 240 mg PO DAILY 06/04/13 [History] Sucralfate [Carafate] 1 tab PO QID 02/02/15 [History] atorvaSTATin Calcium [Atorvastatin Calcium] 20 mg PO DAILY 07/12/15 [History] Cholecalciferol (Vitamin D3) [Vitamin D3] 5,000 units PO DAILY 01/07/16 [History] Fluticasone Propionate [Flonase] 2 spray NS QAM 07/30/18 [History] Meclizine [Antivert] 12.5 mg PO TID 07/30/18 [History] ALPRAZolam [Xanax] 0.25 mg PO BID 03/11/20 [History] Celecoxib [CeleBREX] 200 mg PO BID 03/11/20 [History] Cyclobenzaprine [Flexeril] 5 mg PO DAILY 03/11/20 [History] Vortioxetine Hydrobromide [Brintellix] 10 mg PO BID 03/11/20 [History] Past Medical History HEENT History: Reports: Allergic Rhinitis, Sinusitis Cardiovascular History: Reports: Afib Gastrointestinal History: Reports: Gastritis Musculoskeletal History: Reports: Fibromyalgia, Osteoarthritis, Other (See Below) Other Musculoskeletal History: chronic L shoulder pain Neurological History: Reports: Other (See Below) Psychiatric History: Reports: Anxiety, Panic Attack - Infectious Disease History Infectious Disease History: Reports: MRSA - Past Surgical History GI Surgical History: Reports: None Oncologic Surgical History: Reports: None Social & Family History - Family History Family Medical History: Noncontributory - Tobacco Use Tobacco Use Status *Q: Never Tobacco User Second Hand Smoke Exposure: No - Caffeine Use Caffeine Use: Reports: None - Recreational Drug Use Recreational Drug Use: No - Living Situation & Occupation Living situation: Reports: , with Spouse Occupation: Employed ED ROS GENERAL - Review of Systems Review Of Systems: See Below Constitutional: Reports: No Symptoms HEENT: Reports: Other (muffled hearing mild both ears). Denies: Eye Pain, Hearing Loss, Nosebleed, Sinus Problem, Throat Pain, Throat Swelling Respiratory: Reports: No Symptoms. Denies: Shortness of Breath Cardiovascular: Reports: No Symptoms. Denies: Chest Pain, Dyspnea on Exertion, Edema, Lightheadedness, Palpitations, Syncope Endocrine: Reports: No Symptoms GI/Abdominal: Reports: No Symptoms. Denies: Abdominal Pain, Diarrhea, Nausea, Vomiting : Reports: No Symptoms Musculoskeletal: Reports: No Symptoms Skin: Reports: No Symptoms Neurological: Reports: Dizziness, Numbness (left face), Tingling (left face). Denies: Confusion, Headache, Paresthesia, Pre-Existing Deficit, Seizure, Syncope, Tremors, Trouble Speaking, Difficulty Walking, Weakness, Change in Speech, Gait Disturbance Psychiatric: Reports: No Symptoms Hematologic/Lymphatic: Reports: No Symptoms Immunologic: Reports: No Symptoms ED EXAM, GENERAL - Physical Exam Exam: See Below Exam Limited By: No Limitations General Appearance: Alert, WD/WN, No Apparent Distress, Anxious, Obese Eye Exam: Bilateral Eye: EOMI, Normal Inspection, PERRL Ears: Normal External Exam, Normal Canal, Hearing Grossly Normal, Normal TMs Ear Exam: Bilateral Ear: Auricle Normal, Canal Normal, TM normal Nose: Normal Inspection, Normal Mucosa, No Blood Throat/Mouth: Normal Inspection, Normal Lips, Normal Teeth, Normal Gums, Normal Oropharynx, Normal Voice, No Airway Compromise Head: Atraumatic, Normocephalic Neck: Normal Inspection, Supple, Non-Tender, Full Range of Motion Respiratory/Chest: No Respiratory Distress, Lungs Clear, Normal Breath Sounds, No Accessory Muscle Use, Chest Non-Tender Cardiovascular: Normal Peripheral Pulses, Regular Rate, Rhythm, No Edema, No Gallop, No JVD, No Murmur, No Rub Peripheral Pulses: 2+: Radial (L), Radial (R), Posterior Tibial (L), Posterior Tibial (R) GI/Abdominal: Soft, Non-Tender Back Exam: Normal Inspection, Full Range of Motion Extremities: Normal Inspection, Normal Range of Motion, Non-Tender, No Pedal Edema, Normal Capillary Refill Neurological: Alert, Oriented, CN II-XII Intact, Normal Cognition, Normal Gait, No Motor/Sensory Deficits, Other (STROKE SCORE 0. GCS 15.) Psychiatric: Anxious Skin Exam: Warm, Dry, Intact, Normal Color, No Rash Lymphatic: No Adenopathy #1 Interpretation EKG Date: 04/06/20 Time: 18:13 Rhythm: NSR Rate (Beats/Min): 92 [place]: Normal P-Wave: Present QRS: Normal ST-T: Normal QT: Normal Course - Vital Signs Last Recorded V/S: Last Vital Signs Temp 99.1 F 04/06/20 17:45 Pulse 92 04/06/20 17:45 Resp 18 04/06/20 17:45 BP 163/93 H 04/06/20 17:45 Pulse Ox 98 04/06/20 17:45 - Orders/Labs/Meds Orders: Active Orders 24 hr Category Date Time Status Chest 2V [CR] Stat Exams 04/06/20 17:44 Taken Head wo Cont [CT] Stat Exams 04/06/20 17:44 Taken Labs: Laboratory Tests 10/30/20 10/30/20 10/30/20 Range/Units 18:00 18:00 18:00 WBC 11.0 H (5.0-10.0) 10^3/uL RBC 5.31 (4.50-6.00) 10^6/uL Hgb 14.9 (14.0-18.0) g/dL Hct 45.0 (40.0-54.0) % MCV 84.7 (82.0-94.0) fL MCH 28.1 (27.0-32.0) pg MCHC 33.1 (33.0-38.0) g/dL RDW Coeff of Martha 13.8 (11.0-15.0) % Plt Count 263 (150-400) 10^3/uL Add Manual Diff Yes Neutrophils % (Manual) 66 (35-85) % Band Neutrophils % 8 H (0-5) % Lymphocytes % (Manual) 21 (21-55) % Monocytes % (Manual) 13 H (2-12) % Eosinophils % (Manual) 1 (0-5) % Basophils % (Manual) 1 (0-3) % PT 9.5 L (9.7-12.3) SEC INR 0.94 (0.92-1.18) APTT 26.8 (23.2-32.3) SEC Sodium 143 (136-145) mEq/L Potassium 3.8 (3.5-5.0) mEq/L Chloride 104 (98-106) mEq/L Carbon Dioxide 30 (21-32) mmol/L BUN 17 (7-18) mg/dL Creatinine 1.0 (0.7-1.3) mg/dL Est Cr Clr Drug Dosing 117.36 mL/min Estimated GFR (MDRD) > 60 (>=60) mL/min Glucose 146 H D (75-99) mg/dL Calcium 8.7 (8.4-10.1) mg/dL Total Bilirubin 0.4 (0.0-1.0) mg/dL AST 33 (15-37) U/L ALT 89 H (12-78) U/L Alkaline Phosphatase 116 (46-116) U/L Creatine Kinase 101 (35-232) U/L Troponin I < 0.017 (0.00-0.06) ng/mL Total Protein 8.1 (6.4-8.2) g/dL Albumin 3.9 (3.4-5.0) g/dL Urine Color (YELLOW) Urine Appearance (CLEAR) Urine pH (4.5-8.0) Ur Specific Ellery (1.003-1.020) Urine Protein (NEGATIVE) mg/dL Urine Glucose (UA) (NEGATIVE) mg/dL Urine Ketones (NEGATIVE) mg/dL Urine Occult Blood (NEGATIVE) Urine Nitrite (NEGATIVE) Urine Bilirubin (NEGATIVE) Urine Urobilinogen (0.2-1.0) EU/dL Ur Leukocyte Esterase (NEGATIVE) Urine RBC (0-5) /HPF Urine WBC (0-5) /HPF Ur Epithelial Cells (NOT SEEN) /HPF 10/30/20 Range/Units 18:12 WBC (5.0-10.0) 10^3/uL RBC (4.50-6.00) 10^6/uL Hgb (14.0-18.0) g/dL Hct (40.0-54.0) % MCV (82.0-94.0) fL MCH (27.0-32.0) pg MCHC (33.0-38.0) g/dL RDW Coeff of Martha (11.0-15.0) % Plt Count (150-400) 10^3/uL Add Manual Diff Neutrophils % (Manual) (35-85) % Band Neutrophils % (0-5) % Lymphocytes % (Manual) (21-55) % Monocytes % (Manual) (2-12) % Eosinophils % (Manual) (0-5) % Basophils % (Manual) (0-3) % PT (9.7-12.3) SEC INR (0.92-1.18) APTT (23.2-32.3) SEC Sodium (136-145) mEq/L Potassium (3.5-5.0) mEq/L Chloride (98-106) mEq/L Carbon Dioxide (21-32) mmol/L BUN (7-18) mg/dL Creatinine (0.7-1.3) mg/dL Est Cr Clr Drug Dosing mL/min Estimated GFR (MDRD) (>=60) mL/min Glucose (75-99) mg/dL Calcium (8.4-10.1) mg/dL Total Bilirubin (0.0-1.0) mg/dL AST (15-37) U/L ALT (12-78) U/L Alkaline Phosphatase (46-116) U/L Creatine Kinase (35-232) U/L Troponin I (0.00-0.06) ng/mL Total Protein (6.4-8.2) g/dL Albumin (3.4-5.0) g/dL Urine Color Yellow (YELLOW) Urine Appearance Clear (CLEAR) Urine pH 7.5 (4.5-8.0) Ur Specific Ellery 1.025 H (1.003-1.020) Urine Protein Negative (NEGATIVE) mg/dL Urine Glucose (UA) Negative (NEGATIVE) mg/dL Urine Ketones Negative (NEGATIVE) mg/dL Urine Occult Blood Negative (NEGATIVE) Urine Nitrite Negative (NEGATIVE) Urine Bilirubin Negative (NEGATIVE) Urine Urobilinogen 0.2 (0.2-1.0) EU/dL Ur Leukocyte Esterase Negative (NEGATIVE) Urine RBC 0-5 (0-5) /HPF Urine WBC Not seen (0-5) /HPF Ur Epithelial Cells Moderate H (NOT SEEN) /HPF - Radiology Interpretation Free Text/Narrative:: Head CT: no acute findings CXR: no acute findings - Re-Assessments/Exams Free Text/Narrative Re-Assessment/Exam: 04/06/20 18:59 Reviewed patient labs. He does report urinary frequency lately, did order UA, unremarkable. Discussed all patient labs with the patient. There is no abnormal findings on physical examination. Stroke Score is 0. GCS is 15. No infectious source identified on exam. No fevers. Patient BP is 160/101, has hx of HTN, not emergent, will not treat per current guidelines. I discussed with the for about 15 minutes his symptoms and lab results. I also discussed when to return and f/u with pcp. Patient reports he thinks it might be his chronic neck causing his symptoms. As at discharge, he noted his chronic neck pain has caused this once before. Denies neck stiffness. Negative nuchal rigidity. He also knows about his elevated liver enzymes and is supposed to f/u with pcp about that already. He voices back understanding and when to return to the ER. Departure - Departure Time of Disposition: 18:57 Disposition: Home, Self-Care 01 Condition: Fair Clinical Impression: Facial numbness - Discharge Information *PRESCRIPTION DRUG MONITORING PROGRAM REVIEWED*: Not Applicable *COPY OF PRESCRIPTION DRUG MONITORING REPORT IN PATIENT YOVANI: Not Applicable Instructions: Paresthesia, [id number] Forms: ED Department Discharge Additional Instructions: Followup with your primary care provider on Thursday for recheck Return to the ER or Call 911 for worsening of condition or any emergent concerns such as chest pain, shortness of breath, slurred speech, weakness on one side of body, or any other concerns like we discussed Go home and rest Sepsis Event Note (ED) - Evaluation Sepsis Screening Result: No Definite Risk - Focused Exam Vital Signs: Vital Signs Temp Pulse Resp BP Pulse Ox 04/06/20 17:45 99.1 F 92 18 163/93 H 98 - My Orders Last 24 Hours: My Active Orders 04/06/20 17:44 Chest 2V [CR] Stat Head wo Cont [CT] Stat - Assessment/Plan Last 24 Hours: My Active Orders 04/06/20 17:44 Chest 2V [CR] Stat Head wo Cont [CT] Stat Plan: PLEASE SEE RN NOTE FOR PFSH
[2020-04-06 18:21] LABS: CHLORIDE,CL 104 mEq/L (98-106); SODIUM,NA 143 mEq/L (136-145)
[2020-04-06 18:22] LABS: PTT,PARTIAL THROMBOPLSTIN TIME 26.8 SEC (23.2-32.3)
== END 2020-04-06 19:09 | disposition home or self-care (01) ==
LOC: CC.ED 17:43
DX: R20.0 Anesthesia of skin (principal); R42 Dizziness and giddiness; I48.91 Unspecified atrial fibrillation; M19.90 Unspecified osteoarthritis, unspecified site; F41.9 Anxiety disorder, unspecified; Z91.048 Other nonmedicinal substance allergy status; Z79.82 Long term (current) use of aspirin; Z79.899 Other long term (current) drug therapy
CPT/HCPCS: 36415; 70450; 71046; 80053; 81001; 82550; 84484; 85025; 85610; 85730; 93005; 99284-25

== ENCOUNTER 2020-06-20 14:45 | Emergency (ER) | payer BC ==
[2020-06-20 15:00] VITALS: BP 166/109; PULSE 127
[2020-06-20 15:15] LABS: CHLORIDE,CL 102 mEq/L (98-106); SODIUM,NA 141 mEq/L (136-145)
--- NOTE | 2020-06-20 15:23 | EDM.PDOC ---
ED HPI GENERAL MEDICAL PROBLEM - General Chief Complaint: Chest Pain Stated Complaint: MID CHEST PAIN/PRESSURE Time Seen by Provider: 06/20/20 15:00 Source of Information: Reports: Patient History Limitations: Reports: No Limitations - History of Present Illness INITIAL COMMENTS - FREE TEXT/NARRATIVE: Marcy Marie presents to ER with complaints of midsternal pain. States was sitting at home watching TV when had "electrical shocks" go through his chest. Events lasted 10 seconds each, had 3 episodes. Now complaining of a dull ache in his chest. [place] short of breath with these events. Resting comfortably now. Denies increased heartburn. Relates had similar events back at the end of May, wore a holter monitor. Has not gotten results yet from that. Unknown last stress test. History of paroxysmal atrial fib, did not feel pulse was irregular. Onset: Today, Sudden Duration: Minutes:, Improving Location: Reports: Chest Quality: Reports: Ache Severity: Mild Associated Symptoms: Reports: Chest Pain, Shortness of Breath. Denies: Confusion, Cough, Fever/Chills, Headaches, Loss of Appetite, Malaise, Nausea/Vomiting, Syncope, Weakness Chest Pain Score (Numeric/FACES): 6 - Related Data Allergies Allergy/AdvReac Type Severity Reaction Status Date / Time Dogs Allergy Sneezing Uncoded 06/20/20 15:05 Outdoor Mold Allergy Sneezing Uncoded 06/20/20 15:05 Ragweed Allergy Sneezing Uncoded 06/20/20 15:05 Edilson Allergy Sneezing Uncoded 06/20/20 15:05 Home Meds: Home Meds Aspirin 81 mg PO BEDTIME 06/04/13 [History] Diltiazem [Tiazac] 240 mg PO DAILY 06/04/13 [History] Sucralfate [Carafate] 1 tab PO QID 02/02/15 [History] atorvaSTATin Calcium [Atorvastatin Calcium] 20 mg PO DAILY 07/12/15 [History] Cholecalciferol (Vitamin D3) [Vitamin D3] 5,000 units PO DAILY 01/07/16 [History] Fluticasone Propionate [Flonase] 2 spray NS QAM 07/30/18 [History] Meclizine [Antivert] 12.5 mg PO TID 07/30/18 [History] ALPRAZolam [Xanax] 0.25 mg PO BID 03/11/20 [History] Celecoxib [CeleBREX] 200 mg PO BID 03/11/20 [History] Cyclobenzaprine [Flexeril] 5 mg PO DAILY 03/11/20 [History] Vortioxetine Hydrobromide [Brintellix] 10 mg PO BID 03/11/20 [History] Past Medical History HEENT History: Reports: Allergic Rhinitis, Sinusitis Cardiovascular History: Reports: Afib Gastrointestinal History: Reports: Gastritis Musculoskeletal History: Reports: Fibromyalgia, Osteoarthritis, Other (See Below) Other Musculoskeletal History: chronic L shoulder pain Neurological History: Reports: Other (See Below) Psychiatric History: Reports: Anxiety, Panic Attack - Infectious Disease History Infectious Disease History: Reports: MRSA - Past Surgical History GI Surgical History: Reports: None Oncologic Surgical History: Reports: None Social & Family History - Family History Family Medical History: No Pertinent Family History - Tobacco Use Tobacco Use Status *Q: Never Tobacco User - Caffeine Use Caffeine Use: Reports: None - Recreational Drug Use Recreational Drug Use: No - Living Situation & Occupation Living situation: Reports: , with Spouse Occupation: Employed ED ROS GENERAL - Review of Systems Review Of Systems: See Below Constitutional: Denies: Fever, Chills, Malaise, Weakness, Fatigue, Decreased Appetite HEENT: Denies: Ear Pain, Sinus Problem, Throat Pain, Vertigo Respiratory: Reports: Shortness of Breath. Denies: Cough Cardiovascular: Reports: Chest Pain, Lightheadedness. Denies: Edema Endocrine: Denies: Fatigue GI/Abdominal: Denies: Abdominal Pain, Diarrhea, Nausea, Vomiting : Reports: No Symptoms Musculoskeletal: Reports: No Symptoms Skin: Reports: No Symptoms Neurological: Reports: No Symptoms ED EXAM, GENERAL - Physical Exam Exam: See Below Exam Limited By: No Limitations General Appearance: Alert, WD/WN, No Apparent Distress Ears: Normal External Exam, Normal TMs Nose: Normal Inspection, Normal Mucosa, No Blood Throat/Mouth: Normal Inspection, Normal Oropharynx Head: Normocephalic Neck: Normal Inspection, Supple, Non-Tender Respiratory/Chest: No Respiratory Distress, Lungs Clear, Normal Breath Sounds Cardiovascular: Tachycardia GI/Abdominal: Normal Bowel Sounds, Soft, Non-Tender Extremities: Normal Inspection, No Pedal Edema Neurological: Alert, Oriented Skin Exam: Warm, Dry Course - Vital Signs Last Recorded V/S: Last Vital Signs Temp 98.5 F 06/20/20 14:58 Pulse 127 H 06/20/20 14:58 Resp 20 06/20/20 14:58 BP 166/109 H 06/20/20 14:58 Pulse Ox 97 06/20/20 14:58 - Orders/Labs/Meds Orders: Active Orders 24 hr Category Date Time Status Chest 2V [CR] Stat Exams 06/20/20 14:56 Taken Labs: Laboratory Tests 06/20/20 06/20/20 06/20/20 Range/Units 14:56 14:56 14:56 WBC 13.4 H (5.0-10.0) 10^3/uL RBC 5.49 (4.50-6.00) 10^6/uL Hgb 16.0 (14.0-18.0) g/dL Hct 46.2 (40.0-54.0) % MCV 84.2 (82.0-94.0) fL MCH 29.1 (27.0-32.0) pg MCHC 34.6 (33.0-38.0) g/dL RDW Coeff of Martha 14.5 (11.0-15.0) % Plt Count 296 (150-400) 10^3/uL Add Manual Diff Yes Neutrophils % (Manual) 49 (35-85) % Band Neutrophils % 2 (0-5) % Lymphocytes % (Manual) 37 (21-55) % Monocytes % (Manual) 10 (2-12) % Eosinophils % (Manual) 2 (0-5) % Reactive Lymphocytes Few H (NOT SEEN) PT 10.1 (9.7-12.3) SEC INR 1.00 (0.92-1.18) D-Dimer, Quantitative (0.00-0.50) Sodium 141 (136-145) mEq/L Potassium 3.4 L (3.5-5.0) mEq/L Chloride 102 (98-106) mEq/L Carbon Dioxide 28 (21-32) mmol/L BUN 15 (7-18) mg/dL Creatinine 1.0 (0.7-1.3) mg/dL Est Cr Clr Drug Dosing 107.78 mL/min Estimated GFR (MDRD) > 60 (>=60) mL/min Glucose 126 H (75-99) mg/dL Calcium 9.3 (8.4-10.1) mg/dL Total Bilirubin 0.5 (0.0-1.0) mg/dL AST 44 H (15-37) U/L ALT 115 H (12-78) U/L Alkaline Phosphatase 120 H (46-116) U/L Lactate Dehydrogenase 238 H (100-190) U/L Creatine Kinase 120 (35-232) U/L Troponin I < 0.017 (0.00-0.06) ng/mL Total Protein 8.4 H (6.4-8.2) g/dL Albumin 3.9 (3.4-5.0) g/dL Lipase 84 (73-393) U/L 06/20/20 Range/Units 15:08 WBC (5.0-10.0) 10^3/uL RBC (4.50-6.00) 10^6/uL Hgb (14.0-18.0) g/dL Hct (40.0-54.0) % MCV (82.0-94.0) fL MCH (27.0-32.0) pg MCHC (33.0-38.0) g/dL RDW Coeff of Martha (11.0-15.0) % Plt Count (150-400) 10^3/uL Add Manual Diff Neutrophils % (Manual) (35-85) % Band Neutrophils % (0-5) % Lymphocytes % (Manual) (21-55) % Monocytes % (Manual) (2-12) % Eosinophils % (Manual) (0-5) % Reactive Lymphocytes (NOT SEEN) PT (9.7-12.3) SEC INR (0.92-1.18) D-Dimer, Quantitative 0.19 (0.00-0.50) Sodium (136-145) mEq/L Potassium (3.5-5.0) mEq/L Chloride (98-106) mEq/L Carbon Dioxide (21-32) mmol/L BUN (7-18) mg/dL Creatinine (0.7-1.3) mg/dL Est Cr Clr Drug Dosing mL/min Estimated GFR (MDRD) (>=60) mL/min Glucose (75-99) mg/dL Calcium (8.4-10.1) mg/dL Total Bilirubin (0.0-1.0) mg/dL AST (15-37) U/L ALT (12-78) U/L Alkaline Phosphatase (46-116) U/L Lactate Dehydrogenase (100-190) U/L Creatine Kinase (35-232) U/L Troponin I (0.00-0.06) ng/mL Total Protein (6.4-8.2) g/dL Albumin (3.4-5.0) g/dL Lipase (73-393) U/L - Re-Assessments/Exams Free Text/Narrative Re-Assessment/Exam: 06/20/20 15:49 patient doing well. Blood pressure much improved. labs all normal except liver enzymes. Reviewed holter monitor, noted mostly sinus tachycardia, occasional supraventricular beats. Last stress test done in 2014. Will proceed with cardiolyte stress test. Advised Fran Jay, patient PCP of elevated liver enzymes, will follow. Departure - Departure Time of Disposition: 15:52 Disposition: Home, Self-Care 01 Condition: Good Clinical Impression: Atypical chest pain Referrals: Prem Jay PA-C [Primary Care Provider] - Forms: ED Department Discharge Additional Instructions: 1. Rest 2. Push fluids 3. Usual anxiety meds 4. Follow up with Fran Jay to reevaluate liver enzymes 5. Will call you with arranged stress test as unable to perform here due to weight Sepsis Event Note (ED) - Evaluation Sepsis Screening Result: No Definite Risk - Focused Exam Vital Signs: Vital Signs Temp Pulse Resp BP Pulse Ox 06/20/20 14:58 98.5 F 127 H 20 166/109 H 97 - My Orders Last 24 Hours: My Active Orders 06/20/20 14:56 Chest 2V [CR] Stat - Assessment/Plan Last 24 Hours: My Active Orders 06/20/20 14:56 Chest 2V [CR] Stat
== END 2020-06-20 16:00 | disposition home or self-care (01) ==
LOC: CC.ED 14:45
DX: R07.89 Other chest pain (principal); R07.2 Precordial pain; R06.02 Shortness of breath; R00.0 Tachycardia, unspecified; I48.91 Unspecified atrial fibrillation; M19.90 Unspecified osteoarthritis, unspecified site; Z91.048 Other nonmedicinal substance allergy status; Z79.82 Long term (current) use of aspirin; Z79.899 Other long term (current) drug therapy
CPT/HCPCS: 36415; 71046; 80053; 82550; 83615; 83690; 84484; 85025; 85379; 85610; 93005; 99285-25

== ENCOUNTER 2020-10-17 22:24 | Emergency (ER) | payer BC ==
[2020-10-17 22:29] VITALS: PULSE 91
[2020-10-17 22:56] VITALS: BP 148/96
--- NOTE | 2020-10-17 22:59 | EDM.PDOC ---
ED HPI GENERAL MEDICAL PROBLEM - General Chief Complaint: General Stated Complaint: "my feet are swollen" Time Seen by Provider: 10/17/20 22:47 Source of Information: Reports: Patient History Limitations: Reports: No Limitations - History of Present Illness INITIAL COMMENTS - FREE TEXT/NARRATIVE: Marcy Marie is a 39 year old male who presents to ER with complaints of swelling in his ankles and feet. Had travelled approximately 700 miles to [place] on Thursday for a , drove home today. Noted "my shoes were tight and uncomfortable today" when I got home. Has not ever had this happen in the past and has travelled this route 2-3 times per year for the last several years. He denies shortness of breath or chest pain. Does not feel his dietary intake was much different than his normal but did eat out. Stopped approximately every 100 miles or so to walk around. Noted calf pain this evening so was worried about a clot. History of paroxysmal atrial fib, takes an aspirin daily and Diltiazem to control his rate. Onset: Gradual Duration: Day(s):, Getting Worse Location: Reports: Lower Extremity, Left, Lower Extremity, Right Quality: Reports: Ache Severity: Mild Associated Symptoms: Denies: Confusion, Chest Pain, Cough, Fever/Chills, Loss of Appetite, Malaise, Nausea/Vomiting, Shortness of Breath, Syncope, Weakness Right Lower Posterior Leg Pain Score (Numeric/FACES): 5 - Related Data Allergies Allergy/AdvReac Type Severity Reaction Status Date / Time Dogs Allergy Sneezing Uncoded 06/20/20 15:05 Outdoor Mold Allergy Sneezing Uncoded 06/20/20 15:05 Ragweed Allergy Sneezing Uncoded 06/20/20 15:05 Edilson Allergy Sneezing Uncoded 06/20/20 15:05 Home Meds: Home Meds Aspirin 81 mg PO BEDTIME 06/04/13 [History] Sucralfate [Carafate] 1 tab PO QID 02/02/15 [History] atorvaSTATin Calcium [Atorvastatin Calcium] 20 mg PO DAILY 07/12/15 [History] Cholecalciferol (Vitamin D3) [Vitamin D3] 7,000 units PO DAILY 01/07/16 [History] Fluticasone Propionate [Flonase] 2 spray NS QAM 07/30/18 [History] Meclizine [Antivert] 25 mg PO TID 07/30/18 [History] ALPRAZolam [Xanax] 0.25 mg PO BID 03/11/20 [History] Celecoxib [CeleBREX] 200 mg PO BID 03/11/20 [History] Cyclobenzaprine [Flexeril] 5 mg PO DAILY 03/11/20 [History] Vortioxetine Hydrobromide [Brintellix] 20 mg PO DAILY 03/11/20 [History] DULoxetine HCl [Cymbalta] 30 mg PO DAILY 10/17/20 [History] Pantoprazole [ProTONIX] 40 mg PO DAILY 10/17/20 [History] dilTIAZem HCL [Cartia Xt] 240 mg PO DAILY 10/17/20 [History] Past Medical History HEENT History: Reports: Allergic Rhinitis, Sinusitis Cardiovascular History: Reports: Afib Respiratory History: Reports: Sleep Apnea Gastrointestinal History: Reports: Gastritis, PUD Musculoskeletal History: Reports: Fracture, Fibromyalgia, Osteoarthritis, Other (See Below) Other Musculoskeletal History: chronic L shoulder pain Neurological History: Reports: Vertigo Psychiatric History: Reports: Anxiety, Depression, Panic Attack Endocrine/Metabolic History: Reports: Obesity/BMI 30+ - Infectious Disease History Infectious Disease History: Reports: MRSA - Past Surgical History HEENT Surgical History: Reports: Other (See Below) Other HEENT Surgeries/Procedures: sinus surgery X2 Cardiovascular Surgical History: Reports: None Respiratory Surgical History: Reports: None GI Surgical History: Reports: Cholecystectomy, Colonoscopy, EGD Musculoskeletal Surgical History: Reports: Carpal Tunnel Oncologic Surgical History: Reports: None Social & Family History - Family History Family Medical History: No Pertinent Family History - Tobacco Use Tobacco Use Status *Q: Former Tobacco User Used Tobacco, but Quit: Yes Month/Year Tobacco Last Used: 2017 - Caffeine Use Caffeine Use: Reports: None - Living Situation & Occupation Living situation: Reports: , with Spouse Occupation: Employed ED ROS GENERAL - Review of Systems Review Of Systems: See Below Constitutional: Denies: Fever, Chills, Malaise, Weakness, Fatigue, Decreased Appetite HEENT: Denies: Ear Pain, Sinus Problem, Throat Pain Respiratory: Denies: Shortness of Breath, Cough Cardiovascular: Reports: Edema. Denies: Chest Pain, Lightheadedness Endocrine: Denies: Fatigue GI/Abdominal: Denies: Abdominal Pain, Nausea, Vomiting : Reports: No Symptoms Musculoskeletal: Reports: Leg Pain Skin: Reports: No Symptoms Neurological: Reports: No Symptoms Psychiatric: Reports: No Symptoms ED EXAM, GENERAL - Physical Exam Exam: See Below Exam Limited By: No Limitations General Appearance: Alert, WD/WN, No Apparent Distress Ears: Normal External Exam, Normal TMs Nose: Normal Inspection, Normal Mucosa, No Blood Throat/Mouth: Normal Inspection, Normal Oropharynx Head: Normocephalic Neck: Normal Inspection, Supple, Non-Tender Respiratory/Chest: No Respiratory Distress, Lungs Clear, Normal Breath Sounds Cardiovascular: Regular Rate, Rhythm GI/Abdominal: Normal Bowel Sounds, Soft, Non-Tender Extremities: Pedal Edema (1+ pitting) Neurological: Alert, Oriented Skin Exam: Warm, Dry Course - Vital Signs Last Recorded V/S: Last Vital Signs Temp 98.9 F 10/17/20 22:25 Pulse 91 10/17/20 22:25 Resp 16 10/17/20 22:25 BP 148/96 H 10/17/20 22:56 Pulse Ox 96 10/17/20 22:25 - Orders/Labs/Meds Labs: Laboratory Tests 10/17/20 10/17/20 10/17/20 Range/Units 22:43 22:43 22:43 WBC 11.9 H (5.0-10.0) 10^3/uL RBC 4.85 (4.50-6.00) 10^6/uL Hgb 13.8 L (14.0-18.0) g/dL Hct 40.9 (40.0-54.0) % MCV 84.3 (82.0-94.0) fL MCH 28.5 (27.0-32.0) pg MCHC 33.7 (33.0-38.0) g/dL RDW Coeff of Martha 14.3 (11.0-15.0) % Plt Count 237 (150-400) 10^3/uL Add Manual Diff Yes Neutrophils % (Manual) 57 (35-85) % Band Neutrophils % 3 (0-5) % Lymphocytes % (Manual) 32 (21-55) % Monocytes % (Manual) 5 (2-12) % Eosinophils % (Manual) 3 (0-5) % Absolute Neutrophils 7.14 H (1.80-7.00) 10^3/uL Lymphocytes # (Manual) 3.81 (1.00-4.80) 10^3/uL Monocytes # (Manual) 0.60 (0.00-0.80) 10^3/uL Eosinophils # (Manual) 0.36 (0.00-0.45) 10^3/uL D-Dimer, Quantitative 0.32 (0.00-0.50) Sodium 143 (136-145) mEq/L Potassium 3.7 (3.5-5.0) mEq/L Chloride 103 (98-106) mEq/L Carbon Dioxide 28 (21-32) mmol/L BUN 19 H (7-18) mg/dL Creatinine 1.0 (0.7-1.3) mg/dL Est Cr Clr Drug Dosing 107.78 mL/min Estimated GFR (MDRD) > 60 (>=60) mL/min Glucose 95 (75-99) mg/dL Calcium 8.5 (8.4-10.1) mg/dL NT-Pro-B Natriuret Pep 25 (0-1000) pg/mL - Re-Assessments/Exams Free Text/Narrative Re-Assessment/Exam: 10/17/20 23:14 Labs are all normal. Patient reassured of findings. Will give diuretic as needed for swelling. Departure - Departure Time of Disposition: 23:16 Disposition: Home, Self-Care 01 Condition: Good Clinical Impression: Dependent edema - Discharge Information *PRESCRIPTION DRUG MONITORING PROGRAM REVIEWED*: No *COPY OF PRESCRIPTION DRUG MONITORING REPORT IN PATIENT YOVANI: No Instructions: Edema, [id number] Referrals: PCP,None [Primary Care Provider] - Forms: ED Department Discharge Additional Instructions: 1. Push fluids 2. Elevate legs 3. Lasix 40 mg daily as needed for the next 5 days 4. Watch salt intake/return to usual diet 5. Follow up with Fran if persistent concerns. Sepsis Event Note (ED) - Evaluation Sepsis Screening Result: No Definite Risk - Focused Exam Vital Signs: Vital Signs Temp Pulse Resp BP BP Pulse Ox 10/17/20 22:56 148/96 H 10/17/20 22:25 98.9 F 91 16 144/91 H 96
[2020-10-17 23:05] LABS: CHLORIDE,CL 103 mEq/L (98-106); SODIUM,NA 143 mEq/L (136-145)
== END 2020-10-17 23:20 | disposition home or self-care (01) ==
LOC: CC.ED 22:24
DX: R60.0 Localized edema (principal); Z87.891 Personal history of nicotine dependence; Z79.82 Long term (current) use of aspirin; Z79.899 Other long term (current) drug therapy; Z91.048 Other nonmedicinal substance allergy status; Z91.09 Other allergy status, other than to drugs and biological substances; E66.9 Obesity, unspecified
CPT/HCPCS: 36415; 80048; 83880; 85025; 85379; 99283

== ENCOUNTER 2021-03-01 19:34 | Emergency (ER) | payer BC ==
[2021-03-01 19:49] VITALS: BP 155/100; PULSE 88
--- NOTE | 2021-03-01 20:13 | EDM.PDOC ---
ED HPI GENERAL MEDICAL PROBLEM - General Chief Complaint: Eye Problems Stated Complaint: left eye is swollen Time Seen by Provider: 03/01/21 19:50 Source of Information: Reports: Patient History Limitations: Reports: No Limitations - History of Present Illness INITIAL COMMENTS - FREE TEXT/NARRATIVE: Marcy Marie is a 40 yo male who presents to the ED with complaints of left eye rednes s and swelling. He states he had an itch in the corner of his eye and after itching is when he noticed it started to swell. States he does have some sensitivity to light. Vision is still okay but admits it is a little blurry. Denies getting anything in his eye. Doesn't feel like there is anything. States it does feel grainy. He did take 50mg of Benadryl at 1700. No drainage noted from left eye. He also states the bottom of his left foot swelled up and is bruised now. Happened when he was out in the yard. States he felt a pop and had swelling and tenderness afterwards. Worse with flexing his foot downward. Left Eye Pain Score (Numeric/FACES): 4 - Related Data Allergies Allergy/AdvReac Type Severity Reaction Status Date / Time Dogs Allergy Sneezing Uncoded 03/01/21 19:49 Outdoor Mold Allergy Sneezing Uncoded 03/01/21 19:49 Ragweed Allergy Sneezing Uncoded 03/01/21 19:49 Edilson Allergy Sneezing Uncoded 03/01/21 19:49 Home Meds: Home Meds Aspirin 81 mg PO BEDTIME 06/04/13 [History] Sucralfate [Carafate] 1 tab PO QID 02/02/15 [History] atorvaSTATin Calcium [Atorvastatin Calcium] 20 mg PO DAILY 07/12/15 [History] Cholecalciferol (Vitamin D3) [Vitamin D3] 7,000 units PO DAILY 01/07/16 [History] Fluticasone Propionate [Flonase] 2 spray NS QAM 07/30/18 [History] Meclizine [Antivert] 25 mg PO TID 07/30/18 [History] ALPRAZolam [Xanax] 0.25 mg PO BID 03/11/20 [History] Celecoxib [CeleBREX] 200 mg PO BID 03/11/20 [History] Cyclobenzaprine [Flexeril] 5 mg PO DAILY 03/11/20 [History] Vortioxetine Hydrobromide [Brintellix] 20 mg PO DAILY 03/11/20 [History] DULoxetine HCl [Cymbalta] 30 mg PO DAILY 10/17/20 [History] Pantoprazole [ProTONIX] 40 mg PO DAILY 10/17/20 [History] dilTIAZem HCL [Cartia Xt] 240 mg PO DAILY 10/17/20 [History] Past Medical History HEENT History: Reports: Allergic Rhinitis, Sinusitis Cardiovascular History: Reports: Afib Respiratory History: Reports: Sleep Apnea Gastrointestinal History: Reports: Gastritis, PUD Musculoskeletal History: Reports: Fracture, Fibromyalgia, Osteoarthritis, Other (See Below) Other Musculoskeletal History: chronic L shoulder pain Neurological History: Reports: Vertigo Psychiatric History: Reports: Anxiety, Depression, Panic Attack Endocrine/Metabolic History: Reports: Obesity/BMI 30+ - Infectious Disease History Infectious Disease History: Reports: MRSA - Past Surgical History HEENT Surgical History: Reports: Other (See Below) Other HEENT Surgeries/Procedures: sinus surgery X2 Cardiovascular Surgical History: Reports: None Respiratory Surgical History: Reports: None GI Surgical History: Reports: Cholecystectomy, Colonoscopy, EGD Musculoskeletal Surgical History: Reports: Carpal Tunnel Oncologic Surgical History: Reports: None Social & Family History - Family History Family Medical History: No Pertinent Family History - Tobacco Use Tobacco Use Status *Q: Never Tobacco User Second Hand Smoke Exposure: No - Caffeine Use Caffeine Use: Reports: None - Living Situation & Occupation Living situation: Reports: , with Spouse Occupation: Employed ED ROS GENERAL - Review of Systems Review Of Systems: Comprehensive ROS is negative, except as noted in HPI. ED EXAM GENERAL W FULL EYE - Physical Exam Exam: See Below Exam Limited By: No Limitations General Appearance: Alert, WD/WN, No Apparent Distress Eye Exam: Bilateral Eye: EOMI Eyelids: Left: Edema Conjunctiva & Sclera: Left: Injected Extraocular Movements: Bilateral: Intact Pupils: Normal Accommodation Pupillary Size: Bilateral: 4 mm Pupillary Reaction: Bilateral: Brisk Anterior Chamber: Bilateral: Normal Appearance Posterior Chamber: Bilateral: Normal Funduscopic Head: Atraumatic, Normocephalic Extremities: Other (subtle swelling and bruising noted to plantar aspect of the left foot. No instability of the foot. Gait normal. Tenderness with palpation to the plantar fascia insertion. ) Psychiatric: Normal Affect, Normal Mood Skin Exam: Warm, Dry, Intact Course - Vital Signs Last Recorded V/S: Last Vital Signs Temp 98.7 F 03/01/21 19:35 Pulse 88 03/01/21 19:35 Resp 20 03/01/21 19:35 BP 155/100 H 03/01/21 19:35 Pulse Ox 98 03/01/21 19:35 Departure - Departure Time of Disposition: 20:16 Disposition: Home, Self-Care 01 Clinical Impression: Conjunctivitis Qualifiers: Conjunctivitis type: acute Acute conjunctivitis type: unspecified Laterality: left Qualified Code(s): H10.32 - Unspecified acute conjunctivitis, left eye Contusion of foot Qualifiers: Encounter type: initial encounter Laterality: left Qualified Code(s): S90.32XA - Contusion of left foot, initial encounter - Discharge Information Instructions: Bacterial Conjunctivitis, Adult, [id number], Foot Contusion, [id number], Hematoma, [id number] Additional Instructions: 1) Tobradex eye drops - 2 drops four times a day 2) May continue with antihistamine 3) May apply ice to bottom of foot as discussed. 4)ARLYN wrap applied to bottom of the foot. 5) Recheck next week in clinic for blood pressure check and follow up. Recommend doing daily log of blood pressures at home as well. Sepsis Event Note (ED) - Focused Exam Vital Signs: Vital Signs Temp Pulse Resp BP Pulse Ox 03/01/21 19:35 98.7 F 88 20 155/100 H 98 - Problem List & Annotations (1) Hypertension SNOMED Code(s): 17162894 Code(s): I10 - ESSENTIAL (PRIMARY) HYPERTENSION Status: Acute Priority: Medium Qualifiers: Hypertension type: primary hypertension Qualified Code(s): I10 - Essential (primary) hypertension (2) Conjunctivitis SNOMED Code(s): 8561530 Code(s): H10.9 - UNSPECIFIED CONJUNCTIVITIS Status: Acute Qualifiers: Conjunctivitis type: acute Acute conjunctivitis type: unspecified Laterality: left Qualified Code(s): H10.32 - Unspecified acute conjunctivitis, left eye (3) Contusion of foot SNOMED Code(s): 02519705 Code(s): S90.30XA - CONTUSION OF UNSPECIFIED FOOT, INITIAL ENCOUNTER Status: Acute Qualifiers: Encounter type: initial encounter Laterality: left Qualified Code(s): S90.32XA - Contusion of left foot, initial encounter - Assessment/Plan Plan: See additional instructions. Patient given Tobradex eye drops to help with swelling and injection. Advise if any changes in vision to return for reevaluation. Discussed foot pain and is likely self limiting. Encourage RICE therapy as discussed. Follow up in clinic next week for recheck and to recheck blood pressure.
== END 2021-03-01 20:28 | disposition home or self-care (01) ==
LOC: CC.ED 19:34
DX: S90.32XA Contusion of left foot, initial encounter (principal); H10.32 Unspecified acute conjunctivitis, left eye; I48.91 Unspecified atrial fibrillation; E66.9 Obesity, unspecified; Z68.43 Body mass index [BMI] 50.0-59.9, adult; Z91.09 Other allergy status, other than to drugs and biological substances; Z91.048 Other nonmedicinal substance allergy status; Z79.82 Long term (current) use of aspirin; Z79.899 Other long term (current) drug therapy; X50.9XXA Other and unspecified overexertion or strenuous movements or postures, initial encounter
CPT/HCPCS: 99283

== ENCOUNTER 2021-09-16 10:55 | Emergency (ER) | payer BC ==
[2021-09-16 11:09] VITALS: BP 147/84; PULSE 94
[2021-09-16] MEDS ORDERED: Diphtheria,Pertussis(Acell),Tetanus Vaccine 0.5 ML Syringe IM ONE (11:17)
[2021-09-16] MEDS ORDERED: Morphine 2 MG/ML SYRINGE IVPUSH ONE (11:40)
== END 2021-09-16 12:25 | disposition critical access hospital (66) ==
LOC: CC.ED 10:55
DX: S82.402B Unspecified fracture of shaft of left fibula, initial encounter for open fracture type I or II (principal); Z23 Encounter for immunization; I48.91 Unspecified atrial fibrillation; F41.9 Anxiety disorder, unspecified; F32.A Depression, unspecified; E66.9 Obesity, unspecified; Z68.43 Body mass index [BMI] 50.0-59.9, adult; Z91.048 Other nonmedicinal substance allergy status; Z91.018 Allergy to other foods; W22.8XXA Striking against or struck by other objects, initial encounter; Y92.096 Garden or yard of other non-institutional residence as the place of occurrence of the external cause
CPT/HCPCS: 73610-LT; 90471; 90715; 96374; 99284; 99284-25; J2270

== ENCOUNTER 2021-09-20 20:02 | Emergency (ER) | payer BC ==
[2021-09-20] MEDS ORDERED: Take Home: Ondansetron 4 MG Tab.DIS, 2 Tab Pack PO ONE (20:11)
[2021-09-20 21:10] VITALS: BP 141/90; PULSE 85
== END 2021-09-20 20:30 | disposition home or self-care (01) ==
LOC: CC.ED 20:02
DX: M79.605 Pain in left leg (principal); I48.91 Unspecified atrial fibrillation; M19.90 Unspecified osteoarthritis, unspecified site; E66.9 Obesity, unspecified; Z68.45 Body mass index [BMI] 70 or greater, adult; Z79.82 Long term (current) use of aspirin; Z79.899 Other long term (current) drug therapy
CPT/HCPCS: 73590-LT; 99283; A9270-GY

== ENCOUNTER 2022-01-08 19:16 | Emergency (ER) | payer BC ==
[2022-01-08 19:30] VITALS: BP 150/90; PULSE 88
[2022-01-08] MEDS: Take Home: traMADol 50 MG, 4 Tab Pack PO ONE (20:29)
== END 2022-01-08 20:30 | disposition home or self-care (01) ==
LOC: CC.ED 19:16
DX: S76.011A Strain of muscle, fascia and tendon of right hip, initial encounter (principal); S76.911A Strain of unspecified muscles, fascia and tendons at thigh level, right thigh, initial encounter; S73.101A Unspecified sprain of right hip, initial encounter; S80.01XA Contusion of right knee, initial encounter; I48.91 Unspecified atrial fibrillation; F41.9 Anxiety disorder, unspecified; F32.A Depression, unspecified; E66.9 Obesity, unspecified; Z79.899 Other long term (current) drug therapy; Z91.048 Other nonmedicinal substance allergy status; Z91.018 Allergy to other foods; W19.XXXA Unspecified fall, initial encounter
CPT/HCPCS: 73560-RT; 99283; A9270-GY

== ENCOUNTER 2024-11-26 12:56 | Emergency (ER) | payer OTHER ==
[2024-11-26 13:12] LABS: BASOPHILS ABSOLUTE AUTO 0.07 10^3/uL (0.00-0.50); BASOPHILS PERCENT AUTO 0.7 % (0-1); EOSINOPHILS ABSOLUTE AUTO 0.32 10^3/uL (0.00-1.50); EOSINOPHILS PERCENT AUTO 3.1 % (0-6); HEMATOCRIT 29.6 % (42.0-52.0); HEMOGLOBIN 9.9 g/dL (14.0-18.0); IMMATURE GRAN ABSOLUTE AUTO 0.56 10^3/uL (0.00-0.49); IMMATURE GRAN PERCENT AUTO 5.3 % (0.0-4.9); LYMPHOCYTES ABSOLUTE AUTO 2.69 10^3/uL (0.60-5.00); LYMPHOCYTES PERCENT AUTO 25.6 % (24-44); MEAN CORPUSCULAR HGB CONC 33.4 g/dL (32.0-36.0); MEAN CORPUSCULAR VOLUME 89.7 fL (83.0-97.0); MONOCYTES ABSOLUTE AUTO 0.76 10^3/uL (0.00-1.50); MONOCYTES PERCENT AUTO 7.2 % (0-10); NEUTROPHILS ABSOLUTE AUTO 6.09 x10^3/uL (1.80-8.00); NEUTROPHILS PERCENT AUTO 58.1 % (41-71); PLATELET COUNT,PLT 214 10^3/uL (150-400); WHITE BLOOD CELL COUNT,WBC 10.5 10^3/uL (4.0-11.0)
[2024-11-26 13:18] VITALS: BP 126/84; PULSE 88
[2024-11-26 13:26] LABS: BILIRUBIN TOTAL 0.7 mg/dL (0.0-1.0); C-REACTIVE PROTEIN 2.3 mg/dL (<=0.50); CREATININE 0.9 mg/dL (0.7-1.3); EST CRCL DRUG DOSING (CG) 111.56 mL/min; POTASSIUM,K 4.1 mEq/L (3.5-5.0); PROTEIN TOTAL,TP 6.5 g/dL (6.4-8.2)
[2024-11-26] MEDS: Iopamidol 755 Mg/ML 100 ML Bottle IVPUSH ONE (14:23)
== END 2024-11-26 17:41 | disposition home or self-care (01) ==
LOC: CC.ED 12:56
DX: L76.22 Postprocedural hemorrhage of skin and subcutaneous tissue following other procedure (principal); I48.91 Unspecified atrial fibrillation; Z91.048 Other nonmedicinal substance allergy status; Z88.8 Allergy status to other drugs, medicaments and biological substances; Z79.82 Long term (current) use of aspirin; Z79.899 Other long term (current) drug therapy; Z90.49 Acquired absence of other specified parts of digestive tract
CPT/HCPCS: 36415; 74177; 80053; 85025; 86140; 99284; Q9967